=== PATIENT | female | born 1960 | race Caucasian/White ===

== ENCOUNTER 2020-04-10 09:11 | Emergency (ER) | payer OTHER ==
[~2020-04-10] VITALS: Ht 167.6 cm; Wt 64.1 kg
[2020-04-10 09:17] VITALS: BP 111/59
--- NOTE | 2020-04-10 09:33 | NUR ---
CHARGE BREAK RN: PT WC'D TO ROOM FROM LOBBY.
[2020-04-10] MEDS ORDERED: FLUORESCEIN/BENOXINATE 5 ML DROPS OP ONE (10:00)
== END 2020-04-10 10:50 | disposition home or self-care (01) ==
LOC: ED 10:38
DX: H61.21 Impacted cerumen, right ear (principal); H57.12 Ocular pain, left eye; V59.40XA Driver of pick-up truck or van injured in collision with unspecified motor vehicles in traffic accident, initial encounter; Y93.89 Activity, other specified; Y92.488 Other paved roadways as the place of occurrence of the external cause; Y99.8 Other external cause status
CPT/HCPCS: 99282; 99283